=== PATIENT | female | born 1955 | race African-American/Black ===

== ENCOUNTER 2017-01-24 07:52 | Emergency (ER) | payer BC, MEDICAID ==
[~2017-01-24] VITALS: Ht 160 cm; Wt 78.0 kg
[2017-01-24 11:20] VITALS: BP 161/99
== END 2017-01-24 11:40 | disposition home or self-care (01) ==
LOC: ER 08:35
DX: M25.561 Pain in right knee (principal); M19.90 Unspecified osteoarthritis, unspecified site; E11.9 Type 2 diabetes mellitus without complications; I10 Essential (primary) hypertension; Z87.442 Personal history of urinary calculi; Z88.0 Allergy status to penicillin; Z88.2 Allergy status to sulfonamides; Z88.5 Allergy status to narcotic agent; Z88.8 Allergy status to other drugs, medicaments and biological substances; Z91.041 Radiographic dye allergy status; Z91.040 Latex allergy status
CPT/HCPCS: 73562; 99284

== ENCOUNTER 2017-07-03 10:17 | Emergency (ER) | payer SELFPAY ==
[~2017-07-03] VITALS: Ht 160 cm; Wt 73.0 kg
[2017-07-03 10:24] VITALS: BP 156/103
== END 2017-07-03 13:00 | disposition home or self-care (01) ==
LOC: ER 11:43
DX: I10 Essential (primary) hypertension (principal); R00.1 Bradycardia, unspecified; E11.9 Type 2 diabetes mellitus without complications; Z88.0 Allergy status to penicillin; Z88.2 Allergy status to sulfonamides; Z88.5 Allergy status to narcotic agent; Z88.6 Allergy status to analgesic agent; Z91.040 Latex allergy status; Z91.010 Allergy to peanuts
CPT/HCPCS: 93005; 99283; Z7610

== ENCOUNTER 2017-12-07 11:38 | Emergency (ER) | payer SELFPAY ==
[~2017-12-07] VITALS: Ht 160 cm; Wt 71.0 kg
[2017-12-07 11:44] VITALS: BP 163/90
== END 2017-12-07 15:59 | disposition left against medical advice (07) ==
LOC: ER 13:44
DX: J02.9 Acute pharyngitis, unspecified (principal); R14.2 Eructation; Z88.0 Allergy status to penicillin; Z88.2 Allergy status to sulfonamides; Z88.6 Allergy status to analgesic agent; Z88.8 Allergy status to other drugs, medicaments and biological substances; Z91.040 Latex allergy status; Z91.010 Allergy to peanuts; Z91.048 Other nonmedicinal substance allergy status
CPT/HCPCS: 99281

== ENCOUNTER 2019-02-04 12:53 | Emergency (ER) | payer MEDICAID, OTHER ==
[~2019-02-04] VITALS: Ht 160 cm; Wt 72.0 kg
[2019-02-04 13:23] VITALS: BP 165/92
[2019-02-04] MEDS ORDERED: ACETAMINOPHEN 325MG TABLET PO STA (14:39)
== END 2019-02-04 15:55 | disposition home or self-care (01) ==
LOC: ER 12:53
DX: S00.83XA Contusion of other part of head, initial encounter (principal); E11.9 Type 2 diabetes mellitus without complications; I10 Essential (primary) hypertension; M19.90 Unspecified osteoarthritis, unspecified site; F17.210 Nicotine dependence, cigarettes, uncomplicated; Z91.010 Allergy to peanuts; Z88.0 Allergy status to penicillin; Z91.013 Allergy to seafood; Z88.2 Allergy status to sulfonamides; Z88.7 Allergy status to serum and vaccine; Z88.8 Allergy status to other drugs, medicaments and biological substances; Z91.018 Allergy to other foods; Z91.040 Latex allergy status; Y04.0XXA Assault by unarmed brawl or fight, initial encounter; Y93.89 Activity, other specified; Y92.89 Other specified places as the place of occurrence of the external cause
CPT/HCPCS: 70486; 99284

== ENCOUNTER 2019-07-17 07:08 | Emergency (ER) | payer OTHER ==
[~2019-07-17] VITALS: Ht 160 cm; Wt 69.0 kg
[2019-07-17 08:00] VITALS: BP 179/91
[2019-07-17] MEDS ORDERED: ACETAMINOPHEN 325MG TABLET PO ONE (08:00)
== END 2019-07-17 09:18 | disposition home or self-care (01) ==
LOC: ER 07:08
DX: M25.512 Pain in left shoulder (principal); M54.2 Cervicalgia; I10 Essential (primary) hypertension; E11.9 Type 2 diabetes mellitus without complications; M19.90 Unspecified osteoarthritis, unspecified site; Z88.6 Allergy status to analgesic agent; Z91.041 Radiographic dye allergy status; Z91.040 Latex allergy status; Z88.5 Allergy status to narcotic agent; Z91.010 Allergy to peanuts; Z88.0 Allergy status to penicillin; Z91.013 Allergy to seafood; Z88.8 Allergy status to other drugs, medicaments and biological substances; Z91.018 Allergy to other foods; W51.XXXA Accidental striking against or bumped into by another person, initial encounter; Y93.89 Activity, other specified; Y92.89 Other specified places as the place of occurrence of the external cause
CPT/HCPCS: 72040; 99283

== ENCOUNTER 2019-07-30 19:28 | Emergency (ER) | payer OTHER | END 2019-07-31 01:52 | disposition left against medical advice (07) | LOC: ER 19:28 | DX: Z53.21 Procedure and treatment not carried out due to patient leaving prior to being seen by health care provider (principal); Z88.0 Allergy status to penicillin; Z88.2 Allergy status to sulfonamides; Z88.6 Allergy status to analgesic agent; Z88.8 Allergy status to other drugs, medicaments and biological substances; Z91.010 Allergy to peanuts; Z91.013 Allergy to seafood; Z91.040 Latex allergy status ==